=== PATIENT | male | born 1955 | race Caucasian/White ===

== ENCOUNTER 2017-11-28 18:23 | Emergency (ER) | payer MEDICARE, MEDICAID ==
[~2017-11-28] VITALS: Ht 170.2 cm; Wt 100.0 kg
[~2017-11-28 18:23] MED LIST: ALBU18HF2 INH; CYCL-394 PO; DULA1.5P; FERR325T28 PO; GLIP-127 PO; HYDR-3686 PO; LANTUS SQ; METH-603 PO; PER10325T PO; PREG100C PO; SIMV20TA5 PO
[2017-11-28] MEDS ORDERED: normal saline 1000ML IV soln IVB ONE (18:45)
[2017-11-28] MEDS ORDERED: ondansetron/PF 4mg/2ml inj IV ONE (18:45)
[2017-11-28 19:32] LABS: BASOPHILS % (AUTO) 0.1 % (0-1); EOSINOPHILS # (AUTO) 0.2 X10'3 (0-0.9); EOSINOPHILS % (AUTO) 1.3 % (0-6); HEMATOCRIT 51.8 % (42.0-52.0); HEMOGLOBIN 17.3 g/dl (14.0-17.9); LYMPHOCYTES # (AUTO) 3.1 X10'3 (1.1-4.8); MEAN CORPUSCULAR HEMOGLOBIN 27.6 PG (27.0-31.0); MEAN CORPUSCULAR HGB CONC 33.4 % (33.0-36.5); MEAN CORPUSCULAR VOLUME 82.5 FL (78-98); MEAN PLATELET VOLUME 7.5 FL (7.4-10.4); MONOCYTES # (AUTO) 0.8 X10'3 (0-0.9); NEUTROPHILS # (AUTO) 8.9 X10'3 (1.8-7.7); NEUTROPHILS % (AUTO) 68.6 % (42-75); PLATELET COUNT 288 X10'3 (140-440); RED BLOOD COUNT 6.27 X10'6 (4.70-6.10); RED CELL DISTRIBUTION WIDTH 14.1 % (11.5-14.5)
[2017-11-28 19:40] LABS: INR 1.1 INR; PROTHROMBIN TIME 11.5 SECONDS (9.0-12.0)
[2017-11-28 19:53] LABS: ALANINE AMINOTRANSFERASE 71 U/L (12-78); ALBUMIN 3.8 G/DL (3.4-5.0); ALBUMIN/GLOBULIN RATIO 0.8 (1.1-1.5); ALKALINE PHOSPHATASE 130 IU/L (46-116); ANION GAP 8 (8-16); ASPARTATE AMINO TRANSFERASE 41 U/L (10-37); BILIRUBIN,TOTAL 0.9 MG/DL (0.1-1.0); BLOOD UREA NITROGEN 18 MG/DL (7-18); BUN/CREATININE RATIO 18.4 (5.4-32.0); CALCIUM 9.2 MG/DL (8.5-10.1); CHLORIDE 97 MMOL/L (99-107); CREATININE 0.98 MG/DL (0.60-1.10); GLUCOSE 200 MG/DL (70-104); MAGNESIUM 1.9 MG/DL (1.5-2.4); POTASSIUM 4.1 MMOL/L (3.5-5.1); SODIUM 132 MMOL/L (135-145); TOTAL PROTEIN 8.4 G/DL (6.4-8.2); eGFR 77 ML/MIN
[2017-11-28] MEDS ORDERED: ONDA4TAB6 PO (20:10)
[2017-11-28 20:16] LABS: CLARITY,URINE Clear (Clear); COLOR,URINE Yellow (Yellow); GLUCOSE, URINE Negative (Neg); KETONES,URINE Negative (Neg); LEUKOCYTE ESTERASE ,URINE Negative (Neg); NITRITES, URINE Negative (Neg); OCCULT BLOOD,URINE Negative (Neg); PROTEIN,URINE Negative (Neg)
[2017-11-28 20:17] LABS: UA COLLECTION TYPE STRAIGHT CATH
[2017-11-28 20:46] VITALS: BP 158/99
== END 2017-11-28 21:12 | disposition home or self-care (01) ==
LOC: ER 18:24
DX: R53.1 Weakness (principal); E11.65 Type 2 diabetes mellitus with hyperglycemia; E78.00 Pure hypercholesterolemia, unspecified; I10 Essential (primary) hypertension; J44.9 Chronic obstructive pulmonary disease, unspecified; K21.9 Gastro-esophageal reflux disease without esophagitis; G89.29 Other chronic pain; E11.42 Type 2 diabetes mellitus with diabetic polyneuropathy; F41.9 Anxiety disorder, unspecified; F32.9 Major depressive disorder, single episode, unspecified; Z90.89 Acquired absence of other organs; Z79.4 Long term (current) use of insulin; Z88.8 Allergy status to other drugs, medicaments and biological substances; Z88.6 Allergy status to analgesic agent
CPT/HCPCS: 36415; 71045; 80053; 81003; 83735; 83880; 84484; 85025; 85610; 93005; 96361; 96374; 99285; A4353; J2405; J7030

== ENCOUNTER 2018-07-12 02:42 | Outpatient (CLI) | payer MEDICARE, MEDICAID ==
[~2018-07-12 02:42] MED LIST changes: +ONDA4TAB6 PO
== END 2018-07-12 23:59 | disposition home or self-care (01) ==
LOC: DIABETIC 02:42
PROVIDERS: ATTEND Student in an Organized Health Care Education/Training Program
DX: E11.65 Type 2 diabetes mellitus with hyperglycemia (principal); E11.40 Type 2 diabetes mellitus with diabetic neuropathy, unspecified; E78.5 Hyperlipidemia, unspecified; I10 Essential (primary) hypertension; J44.9 Chronic obstructive pulmonary disease, unspecified; E11.21 Type 2 diabetes mellitus with diabetic nephropathy; E11.43 Type 2 diabetes mellitus with diabetic autonomic (poly)neuropathy; E11.319 Type 2 diabetes mellitus with unspecified diabetic retinopathy without macular edema; K31.84 Gastroparesis; I67.9 Cerebrovascular disease, unspecified; Z79.4 Long term (current) use of insulin; Z87.891 Personal history of nicotine dependence
CPT/HCPCS: G0108

== ENCOUNTER 2018-10-11 02:21 | Outpatient (CLI) | payer MEDICARE, MEDICAID | END 2018-10-11 23:59 | disposition home or self-care (01) | LOC: DIABETIC 02:21 | PROVIDERS: ATTEND Student in an Organized Health Care Education/Training Program | DX: E11.65 Type 2 diabetes mellitus with hyperglycemia (principal); F17.200 Nicotine dependence, unspecified, uncomplicated; J44.9 Chronic obstructive pulmonary disease, unspecified; I10 Essential (primary) hypertension; E11.40 Type 2 diabetes mellitus with diabetic neuropathy, unspecified; E11.319 Type 2 diabetes mellitus with unspecified diabetic retinopathy without macular edema; E11.21 Type 2 diabetes mellitus with diabetic nephropathy; E11.43 Type 2 diabetes mellitus with diabetic autonomic (poly)neuropathy; K31.84 Gastroparesis; E78.5 Hyperlipidemia, unspecified; I67.9 Cerebrovascular disease, unspecified; Z79.4 Long term (current) use of insulin; Z79.899 Other long term (current) drug therapy | CPT/HCPCS: G0108 ==

== ENCOUNTER 2018-10-18 12:33 | Emergency (ER) | payer MEDICARE, MEDICAID ==
[~2018-10-18] VITALS: Ht 170.2 cm; Wt 93.2 kg
[2018-10-18 12:39] VITALS: BP 214/112
[2018-10-18] MEDS ORDERED: HYDROmorphone 1 mg/ml syringe IM ONE (12:50)
[2018-10-18] MEDS ORDERED: ketorolac trometh inj. 60 MG/2 ML VIAL IM ONE (12:50)
[2018-10-18 14:11] LABS: URINE AMPHETAMINE SCREEN NEGATIVE (Neg); URINE BARBITUATE SCREEN NEGATIVE (Neg); URINE BENZODIAZEPINES SCREEN NEGATIVE (Neg); URINE CANNABINOID SCREEN POSITIVE (Neg); URINE COCAINE SCREEN NEGATIVE (Neg); URINE METHADONE SCREEN NEGATIVE (Neg); URINE OPIATE SCREEN NEGATIVE (Neg); URINE PHENCYCLIDINE SCREEN NEGATIVE (Neg)
== END 2018-10-18 14:03 | disposition home or self-care (01) ==
LOC: ER 12:33
DX: G89.29 Other chronic pain (principal); M25.512 Pain in left shoulder; J44.9 Chronic obstructive pulmonary disease, unspecified; I10 Essential (primary) hypertension; E78.00 Pure hypercholesterolemia, unspecified; E11.42 Type 2 diabetes mellitus with diabetic polyneuropathy; K21.9 Gastro-esophageal reflux disease without esophagitis; Z90.89 Acquired absence of other organs; Z98.890 Other specified postprocedural states; Z88.6 Allergy status to analgesic agent; Z88.8 Allergy status to other drugs, medicaments and biological substances; Z79.4 Long term (current) use of insulin; Z79.899 Other long term (current) drug therapy
CPT/HCPCS: 36415; 73030; 80305; 80320; 96372; 99284; J1885

== ENCOUNTER 2018-10-30 10:53 | Outpatient (CLI) | payer MEDICARE, MEDICAID ==
[2018-10-30] MEDS ORDERED: INSU100I31 SQ (11:28)
[2018-10-30] MEDS ORDERED: HYDR-3686 PO (11:29)
[2018-10-30 12:29] LABS: BASOPHILS % (AUTO) 0.3 % (0-1); EOSINOPHILS # (AUTO) 0.2 X10'3 (0-0.9); EOSINOPHILS % (AUTO) 2.1 % (0-6); LYMPHOCYTES # (AUTO) 2.8 X10'3 (1.1-4.8); LYMPHOCYTES % (AUTO) 24.9 % (21-51); MEAN CORPUSCULAR HEMOGLOBIN 29.1 PG (27.0-31.0); MEAN CORPUSCULAR HGB CONC 33.5 % (33.0-36.5); MEAN CORPUSCULAR VOLUME 86.9 FL (78-98); MEAN PLATELET VOLUME 7.6 FL (7.4-10.4); MONOCYTES # (AUTO) 0.8 X10'3 (0-0.9); NEUTROPHILS # (AUTO) 7.5 X10'3 (1.8-7.7); NEUTROPHILS % (AUTO) 65.7 % (42-75); PRE OP HEMATOCRIT 50.3 % (42.0-52.0); PRE OP HEMOGLOBIN 16.9 g/dL (14.0-17.9); PRE OP PLATELET COUNT 316 X10'3 (140-440); RED BLOOD COUNT 5.79 X10'6 (4.70-6.10); RED CELL DISTRIBUTION WIDTH 14.1 % (11.5-14.5)
[2018-10-30 12:53] LABS: ALBUMIN 3.8 G/DL (3.4-5.0); ALBUMIN/GLOBULIN RATIO 0.9 (1.1-1.5); ALKALINE PHOSPHATASE 121 IU/L (46-116); BLOOD UREA NITROGEN 16 MG/DL (7-18); BUN/CREATININE RATIO 16.7 (5.4-32.0); CHLORIDE 98 MMOL/L (99-107); CREATININE 0.96 MG/DL (0.60-1.10); PRE OP ANION GAP 14 (8-16); PRE OP AST 44 U/L (10-37); PRE OP BILIRUB, TOTAL 0.5 MG/DL (0.0-1.0); PRE OP POTASSIUM 4.2 MMOL/L (3.4-5.1); PRE OP SODIUM 134 MMOL/L (135-145); TOTAL CARBON DIOXIDE 22.2 MMOL/L (24-32); TOTAL PROTEIN 8.1 G/DL (6.4-8.2); eGFR 79 ML/MIN
[2018-10-30 12:59] LABS: PRE OP GLUCOSE 296 MG/DL (70-104)
[2018-10-30 13:00] LABS: PRE OP ALT 84 U/L (30-65)
[2018-10-30 13:02] LABS: PRE OP PROTIME 10.6 SECONDS (9.0-12.0)
== END 2018-10-30 23:59 | disposition home or self-care (01) ==
LOC: PRE-OP 10:53 → EDSTATUS 11-03 08:30
PROVIDERS: ATTEND Orthopaedic Surgery
DX: Z01.818 Encounter for other preprocedural examination (principal); M19.012 Primary osteoarthritis, left shoulder; J44.9 Chronic obstructive pulmonary disease, unspecified; F17.210 Nicotine dependence, cigarettes, uncomplicated; M25.512 Pain in left shoulder
CPT/HCPCS: 36415; 71046; 80053; 83036; 85025; 85610; 85730; 87070

== ENCOUNTER 2019-01-03 11:07 | Inpatient (IN) | payer MEDICARE, MEDICAID | END 2019-01-04 13:27 | disposition home or self-care (01) | LOC: ER 11:07 → ED HOLD 15:23 → ORTHO 4S 17:15 | DX: E11.42 Type 2 diabetes mellitus with diabetic polyneuropathy (principal); J44.9 Chronic obstructive pulmonary disease, unspecified; F32.9 Major depressive disorder, single episode, unspecified ==

== ENCOUNTER 2019-01-30 12:06 | Emergency (ER) | payer MEDICARE, MEDICAID ==
[~2019-01-30] VITALS: Ht 170.2 cm; Wt 90.9 kg
[~2019-01-30 12:06] MED LIST changes: -ALBU18HF2 INH; -CYCL-394 PO; +DIPH28.33 TOP; -DULA1.5P; +DULA1.5P SQ; -FERR325T28 PO; -GLIP-127 PO; -HYDR-3686 PO; +HYDR-4353 PO; +INSU100I31 SQ; -LANTUS SQ; +METF-950 PO; -METH-603 PO; -ONDA4TAB6 PO; -PER10325T PO; -PREG100C PO
[2019-01-30] MEDS ORDERED: traMADol 50MG tablet PO ONE (13:45)
[2019-01-30 14:10] VITALS: BP 121/69
== END 2019-01-30 15:22 | disposition home or self-care (01) ==
LOC: ER 12:07
DX: R05 Cough (principal); E78.00 Pure hypercholesterolemia, unspecified; I10 Essential (primary) hypertension; J44.9 Chronic obstructive pulmonary disease, unspecified; K21.9 Gastro-esophageal reflux disease without esophagitis; G89.29 Other chronic pain; E11.42 Type 2 diabetes mellitus with diabetic polyneuropathy; Z90.89 Acquired absence of other organs; Z98.890 Other specified postprocedural states; Z88.8 Allergy status to other drugs, medicaments and biological substances; Z88.6 Allergy status to analgesic agent; Z79.4 Long term (current) use of insulin; Z91.011 Allergy to milk products; Z87.01 Personal history of pneumonia (recurrent)
CPT/HCPCS: 71045; 93005; 99283

== ENCOUNTER 2019-02-28 00:50 | Outpatient (CLI) | payer MEDICARE, MEDICAID | END 2019-02-28 23:59 | disposition home or self-care (01) | LOC: DIABETIC 00:50 | PROVIDERS: ATTEND Student in an Organized Health Care Education/Training Program | DX: E11.65 Type 2 diabetes mellitus with hyperglycemia (principal); E11.21 Type 2 diabetes mellitus with diabetic nephropathy; E11.40 Type 2 diabetes mellitus with diabetic neuropathy, unspecified; E11.319 Type 2 diabetes mellitus with unspecified diabetic retinopathy without macular edema; E11.43 Type 2 diabetes mellitus with diabetic autonomic (poly)neuropathy; K31.84 Gastroparesis; E78.5 Hyperlipidemia, unspecified; I10 Essential (primary) hypertension; I67.9 Cerebrovascular disease, unspecified; J44.9 Chronic obstructive pulmonary disease, unspecified; Z87.891 Personal history of nicotine dependence | CPT/HCPCS: G0108 ==

== ENCOUNTER 2019-06-26 08:00 | Outpatient (CLI) | payer MEDICARE, MEDICAID | END 2019-06-26 23:59 | disposition home or self-care (01) | LOC: DIABETIC 08:00 | PROVIDERS: ATTEND Student in an Organized Health Care Education/Training Program | DX: E11.9 Type 2 diabetes mellitus without complications (principal); Z71.3 Dietary counseling and surveillance | CPT/HCPCS: G0108 ==

== ENCOUNTER 2019-11-15 01:02 | Outpatient (CLI) | payer MEDICARE, MEDICAID ==
[~2019-11-15 01:02] MED LIST changes: +SIMV-42 PO; -SIMV20TA5 PO
== END 2019-11-15 23:59 | disposition home or self-care (01) ==
LOC: DIABETIC 01:02
PROVIDERS: ATTEND Student in an Organized Health Care Education/Training Program
DX: E11.65 Type 2 diabetes mellitus with hyperglycemia (principal)
CPT/HCPCS: G0108

== ENCOUNTER 2020-11-13 13:00 | Emergency (ER) | payer MEDICARE, MEDICAID ==
[~2020-11-13] VITALS: Ht 170.2 cm; Wt 97.2 kg
[~2020-11-13 13:00] MED LIST changes: +ADALIMUMAB 40 MG SQ SCH
[2020-11-13 13:15] VITALS: BP 171/135
--- NOTE | 2020-11-13 13:36 | NUR ---
PATIENT STATES THAT HE IS HAVING FAMILY PROBLEMS AND HAS BEEN LIVING WITH A FRIEND FOR THE PAST WEEK. STATES HE FEELS LIKE HE NEEDS TO TALK TO SOMEONE, OR HE WILL POSSIBLY "HURT HIMSELF".
[2020-11-13 15:20] LABS: URINE AMPHETAMINE SCREEN NEGATIVE (Neg); URINE BARBITUATE SCREEN NEGATIVE (Neg); URINE BENZODIAZEPINES SCREEN NEGATIVE (Neg); URINE CANNABINOID SCREEN POSITIVE (Neg); URINE COCAINE SCREEN NEGATIVE (Neg); URINE METHADONE SCREEN NEGATIVE (Neg); URINE OPIATE SCREEN POSITIVE (Neg); URINE PHENCYCLIDINE SCREEN NEGATIVE (Neg)
[2020-11-13 15:23] LABS: ALANINE AMINOTRANSFERASE 70 U/L (12-78); ALBUMIN 4.2 G/DL (3.4-5.0); ALBUMIN/GLOBULIN RATIO 1.1 (1.1-1.5); ALKALINE PHOSPHATASE 77 IU/L (46-116); ANION GAP 11 (8-16); ASPARTATE AMINO TRANSFERASE 51 U/L (10-37); BILIRUBIN,TOTAL 0.8 MG/DL (0.1-1.0); BLOOD UREA NITROGEN 22 MG/DL (7-18); BUN/CREATININE RATIO 19.5 (5.4-32.0); CALCIUM 8.4 MG/DL (8.5-10.1); CHLORIDE 99 MMOL/L (99-107); CREATININE 1.13 MG/DL (0.60-1.10); GLUCOSE 112 MG/DL (70-104); POTASSIUM 4.6 MMOL/L (3.5-5.1); SODIUM 135 MMOL/L (135-145); TOTAL CARBON DIOXIDE 24.9 MMOL/L (24-32); TOTAL PROTEIN 7.9 G/DL (6.4-8.2); eGFR 65 ML/MIN
[2020-11-13 15:26] LABS: BASOPHILS # (AUTO) 0.1 X10'3 (0-0.2); BASOPHILS % (AUTO) 0.7 % (0-1); EOSINOPHILS # (AUTO) 0.2 X10'3 (0-0.9); HEMATOCRIT 43.9 % (42.0-52.0); LYMPHOCYTES # (AUTO) 4.1 X10'3 (1.1-4.8); LYMPHOCYTES % (AUTO) 36.9 % (21-51); MEAN CORPUSCULAR HEMOGLOBIN 29.7 PG (27.0-31.0); MEAN CORPUSCULAR HGB CONC 34.2 g/dL (33.0-36.5); MEAN CORPUSCULAR VOLUME 86.8 FL (78-98); MEAN PLATELET VOLUME 8.2 FL (7.4-10.4); MONOCYTES # (AUTO) 0.9 X10'3 (0-0.9); MONOCYTES % (AUTO) 8.3 % (2-12); NEUTROPHILS # (AUTO) 5.8 X10'3 (1.8-7.7); NEUTROPHILS % (AUTO) 52.1 % (42-75); PLATELET COUNT 274 X10'3 (140-440); RED BLOOD COUNT 5.06 X10'6 (4.70-6.10); RED CELL DISTRIBUTION WIDTH 12.5 % (11.5-14.5)
[2020-11-13 15:32] LABS: ETHANOL < 0.010 GM/DL (0.0-0.010)
[2020-11-13 15:33] LABS: ACETAMINOPHEN < 2.0 UG/ML (10-30)
[2020-11-13] MEDS ORDERED: HYDR-3686 PO (16:09)
[2020-11-13] MEDS ORDERED: ADAL40PE5 SQ (16:09)
[2020-11-13] MEDS ORDERED: MIRT15TA8 PO (16:09)
[2020-11-13] MEDS ORDERED: hydrOXYzine 25 MG tablet PO PRN (17:00)
[2020-11-13] MEDS ORDERED: metFORMIN 500mg tablet PO SCH (17:30)
--- NOTE | 2020-11-13 20:00 | NUR ---
[facility] has been with the patient to evaluate. He is loud and labile.
[2020-11-13] MEDS ORDERED: SIMVASTATIN 20 MG PO SCH (21:00)
[2020-11-13] MEDS ORDERED: mirtazapine 15mg tablet PO SCH (21:00)
[2020-11-14] MEDS ORDERED: insulin glargine (Lantus) pen - multi-dose SQ SCH (08:00)
[2020-11-20] MEDS ORDERED: (Dulaglutide (Trulicity) 0.5 ML) SQ SCH (17:00)
== END 2020-11-13 20:54 ==
LOC: ER 13:01
DX: R45.851 Suicidal ideations (principal); E11.42 Type 2 diabetes mellitus with diabetic polyneuropathy; E78.00 Pure hypercholesterolemia, unspecified; I10 Essential (primary) hypertension; J44.9 Chronic obstructive pulmonary disease, unspecified; K21.9 Gastro-esophageal reflux disease without esophagitis; G89.29 Other chronic pain; F31.9 Bipolar disorder, unspecified; F41.9 Anxiety disorder, unspecified; Z86.73 Personal history of transient ischemic attack (TIA), and cerebral infarction without residual deficits; Z90.89 Acquired absence of other organs; Z98.890 Other specified postprocedural states; Z88.8 Allergy status to other drugs, medicaments and biological substances; Z88.6 Allergy status to analgesic agent; Z79.4 Long term (current) use of insulin; Z79.899 Other long term (current) drug therapy
CPT/HCPCS: 36415; 80053; 80305; 80320; 80329; 82948; 84443; 85025; 99285; Q0177; J1815

== ENCOUNTER 2023-11-21 15:23 | Inpatient (IN) | payer MEDICARE, MEDICAID ==
[~2023-11-21] VITALS: Ht 170.2 cm; Wt 84.6 kg
[~2023-11-21 15:23] MED LIST changes: +ACET-3447 PO; -ADALIMUMAB 40 MG SQ SCH; +ALBU18HF2 PO; +CARV6.253 PO; +CLOP75TA34 PO; -DIPH28.33 TOP; +HYDR-3686 PO; -HYDR-4353 PO; +IPRA3AMP9 NEB; +LISI10TA27 PO; +LOSA50TA64 PO; +META-25 PO; +METF-1203 PO; -METF-950 PO; +MULT-227 PO
[2023-11-21] MEDS ORDERED: ALBU18HF2 INH (17:05)
[2023-11-21] MEDS ORDERED: ROSU40TA PO (17:05)
[2023-11-21 17:12] LABS: BILIRUBIN,URINE NEGATIVE (Neg); CLARITY,URINE CLEAR (Clear); COLOR,URINE YELLOW (Yellow); GLUCOSE, URINE 500 mg/dl (Neg); KETONES,URINE TRACE mg/dl (Neg); LEUKOCYTE ESTERASE ,URINE NEGATIVE (Neg); NITRITES, URINE NEGATIVE (Neg); OCCULT BLOOD,URINE NEGATIVE (Neg); PH,URINE 5.5 (4.8-8.0); PROTEIN,URINE 100 mg/dl (Neg); UROBILINOGEN,URINE 0.2 E.U/dL (0.2-1.0)
[2023-11-21 17:18] LABS: MUCUS STRANDS FEW /LPF (Neg); SQUAMOUS EPITHELIAL CELL,UR FEW /LPF (FEW); UA COLLECTION TYPE CLN CATCH MIDSTREAM; URINE AMPHETAMINE SCREEN NEGATIVE (Neg); URINE BARBITUATE SCREEN NEGATIVE (Neg); URINE BENZODIAZEPINES SCREEN NEGATIVE (Neg); URINE CANNABINOID SCREEN POSITIVE (Neg); URINE COCAINE SCREEN NEGATIVE (Neg); URINE METHADONE SCREEN NEGATIVE (Neg); URINE OPIATE SCREEN NEGATIVE (Neg); URINE PHENCYCLIDINE SCREEN NEGATIVE (Neg)
[2023-11-21 17:19] LABS: BACTERIA,URINE FEW /HPF (Neg); RBC,URINE 0-2 /HPF (0-2); WBC,URINE 0-4 /HPF (0-4)
[2023-11-21] MEDS: metFORMIN 500mg tablet PO SCH (18:31)
[2023-11-21 18:56] LABS: BASOPHILS # (AUTO) 0.1 X10'3 (0-0.2); BASOPHILS % (AUTO) 0.5 % (0-1); EOSINOPHILS # (AUTO) 0.1 X10'3 (0-0.9); EOSINOPHILS % (AUTO) 1.1 % (0-6); HEMATOCRIT 40.4 % (42.0-52.0); HEMOGLOBIN 13.5 g/dl (14.0-17.9); LYMPHOCYTES % (AUTO) 19.5 % (21-51); MEAN CORPUSCULAR HEMOGLOBIN 28.2 PG (27.0-31.0); MEAN CORPUSCULAR HGB CONC 33.4 g/dL (33.0-36.5); MEAN CORPUSCULAR VOLUME 84.3 FL (78-98); MEAN PLATELET VOLUME 7.8 FL (7.4-10.4); MONOCYTES # (AUTO) 0.9 X10'3 (0-0.9); MONOCYTES % (AUTO) 8.6 % (2-12); NEUTROPHILS # (AUTO) 7.3 X10'3 (1.8-7.7); NEUTROPHILS % (AUTO) 70.3 % (42-75); PLATELET COUNT 305 X10'3 (140-440); RED BLOOD COUNT 4.79 X10'6 (4.70-6.10); RED CELL DISTRIBUTION WIDTH 12.7 % (11.5-14.5); WHITE BLOOD COUNT 10.4 X10'3 (4.5-11.0)
[2023-11-21 19:06] LABS: ALANINE AMINOTRANSFERASE 31 U/L (12-78); ALBUMIN 3.5 G/DL (3.4-5.0); ALKALINE PHOSPHATASE 84 IU/L (46-116); ANION GAP 11 (8-16); ASPARTATE AMINO TRANSFERASE 25 U/L (10-37); BILIRUBIN,TOTAL 0.3 MG/DL (0.1-1.0); BLOOD UREA NITROGEN 16 MG/DL (7-18); BUN/CREATININE RATIO 16.3 (10.0-20.0); CALCIUM 8.8 MG/DL (8.5-10.1); CHLORIDE 98 MMOL/L (99-107); CREATININE 0.98 MG/DL (0.60-1.10); GLUCOSE 233 MG/DL (70-104); POTASSIUM 4.9 MMOL/L (3.5-5.1); SODIUM 133 MMOL/L (135-145); TOTAL CARBON DIOXIDE 24.5 MMOL/L (24-32); TOTAL PROTEIN 7.1 G/DL (6.4-8.2); eCRCL 67 ML/MIN; eGFR 76 ML/MIN
[2023-11-21 19:15] LABS: ETHANOL < 10 MG/DL (<10); THYROID STIMULATING HORMONE 1.72 ulU/ml (0.34-4.50)
[2023-11-21] MEDS: hydrOXYzine 25 MG tablet PO SCH (20:24)
[2023-11-21] MEDS: atorvastatin 20mg tablet PO SCH (20:24)
[2023-11-21] MEDS ORDERED: quetiapine 100mg tablet PO SCH (22:05)
[2023-11-21] MEDS: QUEtiapine 25mg tablet PO ONE (22:12)
[2023-11-21] MEDS: QUEtiapine 25mg tablet PO PRN (22:57)
[2023-11-22] MEDS: acetaminophen 325mg tablet PO PRN ×2 (05:19→20:11)
[2023-11-22] MEDS: cyclobenzaprine 10mg tablet PO PRN (05:19)
[2023-11-22] MEDS: lisinopril 10 MG tablet PO SCH (08:25)
[2023-11-22] MEDS: insulin glargine (Lantus) pen - multi-dose SQ ONE (10:20)
[2023-11-22] MEDS: QUEtiapine 25mg tablet PO ONE (11:43)
[2023-11-22] MEDS ORDERED: mag hydrox/Alum hydrox/simeth 30ml oral suspension PO PRN (16:10)
[2023-11-22] MEDS ORDERED: loperamide 2mg capsule PO PRN (16:10)
[2023-11-22 17:26] VITALS: RESP 16; O2SAT 96
[2023-11-22 19:51] VITALS: RESP 18; O2SAT 96
[2023-11-22 19:53] VITALS: BP 142/75; PULSE 110; RESP 18; TEMP 98; O2SAT 96
[2023-11-22] MEDS ORDERED: glucagon, human recombinant 1mg kit SUBCUT PRN (21:00)
[2023-11-22] MEDS ORDERED: dextrose 50%-water 50ml dispensing syringe IV PRN ×2 (21:00)
[2023-11-22] MEDS ORDERED: DEXTROSE 15 GM of carb/4 tabs (each vial/BOTTLE has 4 tablets) PO PRN (21:00)
[2023-11-22] MEDS: insulin glargine (Lantus) pen - multi-dose SQ SCH (21:41)
[2023-11-22] MEDS: traZODone 50mg tablet PO ONE (22:24)
[2023-11-23 07:00] VITALS: RESP 16; O2SAT 97
[2023-11-23 08:00] VITALS: BP 117/78; PULSE 100; RESP 16; TEMP 97.8; O2SAT 100
[2023-11-23] MEDS: insulin Lispro (HumaLOG) vial - multi-dose SQ SCH (08:58)
[2023-11-23 09:57] LABS: HEMOGLOBIN A1C 7.6 % (4.5-6.2)
[2023-11-23 10:01] LABS: CHOL/HDL RATIO 1.9 (0.00-4.99); CHOLESTEROL 91 MG/DL (0-200); HDL CHOLESTEROL 48 MG/DL (35-60); LDL CHOLESTEROL 24 MG/DL (50-100); TRIGLYCERIDES 191 MG/DL (20-135)
[2023-11-23 19:00] VITALS: RESP 18; O2SAT 97
[2023-11-23 19:22] VITALS: BP 141/74; PULSE 88; RESP 18; TEMP 97; O2SAT 97
[2023-11-23] MEDS: ROSUVASTATIN CALCIUM 5 MG TABLET PO SCH (21:21)
[2023-11-24 07:30] VITALS: BP 123/81; PULSE 106; RESP 17; TEMP 97.7; O2SAT 94
[2023-11-24 19:50] VITALS: BP 143/77; PULSE 103; RESP 18; TEMP 98.7; O2SAT 97
[2023-11-24] MEDS ORDERED: quetiapine 100mg tablet PO PRN (21:55)
[2023-11-24] MEDS: traZODone 50mg tablet PO SCH (22:37)
[2023-11-24] MEDS: quetiapine 100mg tablet PO SCH (22:37)
[2023-11-25] MEDS: QUEtiapine 25mg tablet PO PRN (03:23)
[2023-11-25 07:06] VITALS: RESP 17; O2SAT 94
[2023-11-25 08:00] VITALS: BP 102/75; PULSE 110; RESP 16; TEMP 97.4; O2SAT 98
[2023-11-25 10:24] LABS: HBSAG SCREEN Negative (Negative); HEP B CORE AB, IGM Negative (Negative); HEP B CORE AB, TOT Negative (Negative)
[2023-11-25 20:00] VITALS: BP 103/74; PULSE 95; RESP 20; TEMP 97.7; O2SAT 96
[2023-11-25] MEDS ORDERED: quetiapine 100mg tablet PO SCH (21:00)
[2023-11-25] MEDS ORDERED: divalproex sodium 500mg tablet.DR PO SCH (21:00)
[2023-11-25] MEDS ORDERED: traZODone 50mg tablet PO SCH (21:00)
[2023-11-25] MEDS: divalproex sod 250mg ER (24-hour) tablet PO SCH (21:43)
[2023-11-26 08:00] VITALS: BP 115/78; PULSE 103; RESP 16; TEMP 97.3; O2SAT 97
[2023-11-26] MEDS: DULAGLUTIDE 1.5 MG/0.5 ML SQ SCH (10:00)
[2023-11-26 19:00] VITALS: BP 114/76; PULSE 91; RESP 17; TEMP 98.5; O2SAT 95
[2023-11-26 19:41] VITALS: RESP 17; O2SAT 95
[2023-11-26] MEDS: divalproex sod 250mg ER (24-hour) tablet PO SCH (20:48)
[2023-11-26] MEDS: traZODone 50mg tablet PO ONE (22:18)
[2023-11-27 07:00] VITALS: BP 147/81; PULSE 104; RESP 18; TEMP 97.4; O2SAT 96
[2023-11-27] MEDS ORDERED: acetaminophen 325mg tablet PO PRN (12:00)
[2023-11-27] MEDS: albuterol 2.5 MG/3 ML nebule NEB PRN (14:18)
[2023-11-27 14:20] VITALS: PULSE 110; RESP 18; O2SAT 99
[2023-11-27 14:27] VITALS: PULSE 111; RESP 20
[2023-11-27 19:00] VITALS: BP 126/67; PULSE 104; RESP 16; TEMP 97.7; O2SAT 97
[2023-11-28 02:33] VITALS: BP 126/67; PULSE 104; RESP 16; TEMP 97.7; O2SAT 97
[2023-11-28 07:00] VITALS: BP 158/94; PULSE 65; RESP 18; TEMP 98.6; O2SAT 99
[2023-11-28] MEDS: aspirin 81mg, enteric-coated 1 TAB TABLET.DR PO SCH (07:45)
[2023-11-28 09:09] VITALS: PULSE 98; RESP 18; O2SAT 98
[2023-11-28 19:00] VITALS: RESP 16; O2SAT 97
[2023-11-28 19:24] VITALS: BP 108/79; PULSE 103; RESP 16; TEMP 98.1; O2SAT 97
[2023-11-28 20:25] VITALS: PULSE 104; RESP 18; O2SAT 96
[2023-11-29 07:30] VITALS: BP 121/73; PULSE 96; RESP 18; TEMP 98.1; O2SAT 94
[2023-11-29 14:46] VITALS: PULSE 96; RESP 18; O2SAT 98
[2023-11-29 19:32] VITALS: BP 148/83; PULSE 100; RESP 18; TEMP 98; O2SAT 99
[2023-11-29 20:39] VITALS: PULSE 101; RESP 16; O2SAT 98
[2023-11-30 07:00] VITALS: RESP 16; O2SAT 96
[2023-11-30] MEDS: ESCITALOPRAM 10 mg tablet 10 MG TABLET PO SCH (07:31)
[2023-11-30 08:00] VITALS: BP 112/74; PULSE 107; RESP 16; TEMP 97.9; O2SAT 96
[2023-11-30 19:00] VITALS: RESP 20; O2SAT 100
[2023-11-30 20:00] VITALS: BP 139/81; PULSE 62; RESP 20; TEMP 97.6; O2SAT 100
[2023-12-01 07:30] VITALS: BP 133/84; PULSE 99; RESP 16; TEMP 98.1; O2SAT 97
[2023-12-01 19:00] VITALS: BP 115/71; PULSE 65; RESP 16; TEMP 97.5; O2SAT 97
[2023-12-02 07:15] VITALS: RESP 16; O2SAT 97
[2023-12-02 08:00] VITALS: BP 150/90; PULSE 67; RESP 14; TEMP 97.8; O2SAT 99
[2023-12-02 19:00] VITALS: BP 107/84; PULSE 104; RESP 18; TEMP 98.3; O2SAT 96
[2023-12-03 07:41] VITALS: RESP 16; O2SAT 97
[2023-12-03 08:00] VITALS: BP 140/95; PULSE 92; RESP 16; TEMP 97.7; O2SAT 99
[2023-12-03] MEDS: acetaminophen 325mg tablet PO PRN (15:14)
[2023-12-03 19:00] VITALS: RESP 19; O2SAT 97
[2023-12-03 20:00] VITALS: BP 128/98; PULSE 101; RESP 19; TEMP 97.9; O2SAT 97
[2023-12-04 07:00] VITALS: BP 122/68; PULSE 96; RESP 20; TEMP 97.8; O2SAT 96
[2023-12-04 11:24] VITALS: PULSE 90; RESP 16; O2SAT 98
[2023-12-04 19:00] VITALS: BP 139/79; PULSE 101; RESP 18; TEMP 97.5; O2SAT 99
[2023-12-05 07:00] VITALS: RESP 18; O2SAT 99
[2023-12-05 08:00] VITALS: BP 135/81; PULSE 87; RESP 18; TEMP 97.4; O2SAT 99
[2023-12-05 17:08] VITALS: PULSE 96; RESP 17; O2SAT 98
[2023-12-05 19:30] VITALS: RESP 18; O2SAT 98
[2023-12-05 19:46] VITALS: BP 189/83; PULSE 104; RESP 18; TEMP 97.9; O2SAT 98
[2023-12-05] MEDS: magnesium hydroxide 30ml (MOM) UD suspension PO PRN (20:40)
[2023-12-06 08:07] VITALS: BP 120/58; PULSE 96; RESP 16; TEMP 98; O2SAT 96
[2023-12-06] MEDS: metFORMIN 500mg tablet PO SCH (08:51)
[2023-12-06 19:51] VITALS: RESP 18; O2SAT 98
[2023-12-06 19:53] VITALS: BP 140/85; PULSE 114; RESP 18; TEMP 98.6; O2SAT 98
[2023-12-06 20:46] VITALS: BP 140/85; PULSE 114; RESP 18; TEMP 97; O2SAT 98
[2023-12-07 07:00] VITALS: RESP 16; O2SAT 98
[2023-12-07 09:49] VITALS: BP 134/80; PULSE 102; RESP 12; TEMP 98.4; O2SAT 98
[2023-12-07 10:45] VITALS: PULSE 100; RESP 16
[2023-12-07 17:00] VITALS: PULSE 103; RESP 18; O2SAT 98
[2023-12-07 19:00] VITALS: RESP 17; O2SAT 99
[2023-12-07 20:00] VITALS: BP 140/80; PULSE 70; RESP 17; TEMP 98.7; O2SAT 99
[2023-12-08 07:25] VITALS: BP 118/85; PULSE 102; RESP 16; TEMP 98.4; O2SAT 98
[2023-12-08 10:55] VITALS: PULSE 107; RESP 16; O2SAT 97
[2023-12-08 19:30] VITALS: BP 138/78; PULSE 108; RESP 18; TEMP 97.6; O2SAT 97
[2023-12-08 19:49] VITALS: PULSE 108; RESP 16; O2SAT 96
[2023-12-09 07:00] VITALS: BP 124/64; PULSE 108; RESP 16; TEMP 98.8; O2SAT 95
[2023-12-09 12:45] VITALS: PULSE 108; RESP 16; O2SAT 98
[2023-12-09 19:00] VITALS: RESP 20; O2SAT 96
[2023-12-09 19:45] VITALS: BP 103/68; PULSE 101; RESP 20; TEMP 98.2; O2SAT 96
[2023-12-09 20:23] VITALS: PULSE 103; RESP 16; O2SAT 94
[2023-12-10 07:00] VITALS: RESP 16; O2SAT 98
[2023-12-10 08:00] VITALS: BP 151/86; PULSE 96; RESP 14; TEMP 99.1; O2SAT 97
[2023-12-10 11:49] VITALS: PULSE 101; RESP 16; O2SAT 96
[2023-12-10 19:00] VITALS: RESP 16; O2SAT 97
[2023-12-10 20:00] VITALS: BP 102/85; PULSE 112; RESP 16; TEMP 98.3; O2SAT 97
[2023-12-10 22:56] VITALS: PULSE 103; RESP 16; O2SAT 93
[2023-12-11 07:00] VITALS: BP 143/91; PULSE 101; RESP 14; TEMP 97.9; O2SAT 99
[2023-12-11 19:00] VITALS: RESP 20; O2SAT 97
[2023-12-11 19:01] VITALS: BP 169/83; PULSE 91; RESP 20; TEMP 97.8; O2SAT 97
[2023-12-11] MEDS: DEXTROSE 15 GM of carb/4 tabs (each vial/BOTTLE has 4 tablets) PO PRN (21:26)
[2023-12-12 07:00] VITALS: BP 151/82; PULSE 105; RESP 16; TEMP 97.6; O2SAT 93
[2023-12-12 10:38] VITALS: PULSE 96; RESP 16; O2SAT 96
[2023-12-12 19:00] VITALS: RESP 16; O2SAT 97
[2023-12-12 19:30] VITALS: BP 139/81; PULSE 100; RESP 16; TEMP 98.4; O2SAT 97
[2023-12-12 20:00] VITALS: BP 179/113; PULSE 100; RESP 18; TEMP 98.4; O2SAT 98
[2023-12-12] MEDS: insulin glargine (Lantus) pen - multi-dose SQ SCH (21:37)
[2023-12-13 07:00] VITALS: RESP 20; O2SAT 94
[2023-12-13] MEDS: LIDOcaine 5% patch TP SCH (07:25)
[2023-12-13 08:00] VITALS: BP 145/84; PULSE 110; RESP 20; TEMP 98.3; O2SAT 94
[2023-12-13 19:24] VITALS: RESP 18; O2SAT 97
[2023-12-13 19:29] VITALS: BP 146/83; PULSE 111; RESP 18; TEMP 98.4; O2SAT 97
[2023-12-13 20:25] VITALS: PULSE 105; RESP 18; O2SAT 97
[2023-12-14 07:10] VITALS: RESP 18; O2SAT 95
[2023-12-14 08:00] VITALS: BP 147/82; PULSE 105; RESP 18; TEMP 97.9; O2SAT 95
[2023-12-14 17:30] VITALS: PULSE 102; RESP 19; O2SAT 96
[2023-12-14 19:00] VITALS: BP 109/83; PULSE 99; RESP 18; TEMP 98.5; O2SAT 96
[2023-12-15 08:00] VITALS: BP 133/81; PULSE 105; RESP 18; TEMP 98.4; O2SAT 98
[2023-12-15 10:16] VITALS: PULSE 105; RESP 16; O2SAT 96
[2023-12-15 19:00] VITALS: BP 126/67; PULSE 94; RESP 18; TEMP 98; O2SAT 98
[2023-12-16 08:47] VITALS: BP 143/83; PULSE 102; RESP 12; TEMP 98; O2SAT 97
[2023-12-16 10:23] VITALS: PULSE 98; RESP 16; O2SAT 97
[2023-12-16 19:29] VITALS: BP 127/76; PULSE 91; RESP 18; RESP 20; TEMP 97.6; O2SAT 97
[2023-12-17 07:28] VITALS: BP 128/75; PULSE 103; RESP 16; TEMP 97.9; O2SAT 98
[2023-12-17 10:16] VITALS: PULSE 107; RESP 16; O2SAT 97
[2023-12-17 19:00] VITALS: RESP 16; O2SAT 98
[2023-12-17 19:42] VITALS: BP 106/83; PULSE 92; RESP 16; TEMP 98.7; O2SAT 98
[2023-12-17 20:21] VITALS: PULSE 95; RESP 18; O2SAT 96
[2023-12-17] MEDS: famotidine 20mg tablet PO SCH (20:21)
[2023-12-18 07:00] VITALS: BP 144/87; PULSE 98; RESP 20; TEMP 97.6; O2SAT 97
[2023-12-18 15:37] VITALS: PULSE 97; RESP 17; O2SAT 98
[2023-12-18 19:00] VITALS: RESP 18; O2SAT 95
[2023-12-18 19:52] VITALS: BP 131/78; PULSE 96; RESP 18; TEMP 97.9; O2SAT 97
[2023-12-19 07:00] VITALS: BP 146/83; PULSE 103; RESP 18; TEMP 98.8; O2SAT 98
[2023-12-19 19:00] VITALS: RESP 18; O2SAT 97
[2023-12-19 20:00] VITALS: BP 147/83; PULSE 91; RESP 18; TEMP 97.4; O2SAT 97
[2023-12-20 07:00] VITALS: BP 119/75; PULSE 112; RESP 16; RESP 18; TEMP 98.1; O2SAT 95; O2SAT 98
[2023-12-20 13:33] LABS: ALBUMIN 3.3 G/DL (3.4-5.0); ANION GAP 12 (8-16); BLOOD UREA NITROGEN 17 MG/DL (7-18); BUN/CREATININE RATIO 18.7 (10.0-20.0); CALCIUM 8.7 MG/DL (8.5-10.1); CHLORIDE 91 MMOL/L (99-107); CREATININE 0.91 MG/DL (0.60-1.10); GLUCOSE 106 MG/DL (70-104); POTASSIUM 4.9 MMOL/L (3.5-5.1); SODIUM 129 MMOL/L (135-145); TOTAL CARBON DIOXIDE 26.4 MMOL/L (24-32); eCRCL 72 ML/MIN; eGFR 83 ML/MIN
[2023-12-20 19:00] VITALS: RESP 18; O2SAT 96
[2023-12-20 20:24] VITALS: BP 134/66; PULSE 99; RESP 18; TEMP 98.2; O2SAT 96
[2023-12-21 07:56] LABS: ALBUMIN 3.4 G/DL (3.4-5.0); ANION GAP 9 (8-16); BLOOD UREA NITROGEN 16 MG/DL (7-18); CALCIUM 9.1 MG/DL (8.5-10.1); CHLORIDE 95 MMOL/L (99-107); CREATININE 0.84 MG/DL (0.60-1.10); GLUCOSE 82 MG/DL (70-104); POTASSIUM 5.6 MMOL/L (3.5-5.1); SODIUM 134 MMOL/L (135-145); TOTAL CARBON DIOXIDE 29.8 MMOL/L (24-32); eCRCL 78 ML/MIN; eGFR > 90 ML/MIN
[2023-12-21 08:00] VITALS: BP 144/82; PULSE 102; RESP 16; TEMP 97.7; O2SAT 97
[2023-12-21 16:50] VITALS: PULSE 75; RESP 18; O2SAT 96
[2023-12-21 19:00] VITALS: RESP 16
[2023-12-21 20:00] VITALS: RESP 16
[2023-12-22 07:57] VITALS: RESP 16
[2023-12-22 08:16] VITALS: BP 135/86; PULSE 105; RESP 18; TEMP 98.3; O2SAT 98
[2023-12-22 13:02] VITALS: PULSE 102; RESP 16; O2SAT 97
[2023-12-22 19:00] VITALS: BP 123/78; PULSE 108; RESP 16; TEMP 98.7; O2SAT 94
[2023-12-22] MEDS: cyclobenzaprine 10mg tablet PO PRN (21:28)
[2023-12-22 21:47] LABS: ALBUMIN 3.2 G/DL (3.4-5.0); ANION GAP 11 (8-16); BLOOD UREA NITROGEN 21 MG/DL (7-18); BUN/CREATININE RATIO 16.9 (10.0-20.0); CALCIUM 8.7 MG/DL (8.5-10.1); CHLORIDE 95 MMOL/L (99-107); CREATININE 1.24 MG/DL (0.60-1.10); GLUCOSE 115 MG/DL (70-104); POTASSIUM 4.8 MMOL/L (3.5-5.1); SODIUM 133 MMOL/L (135-145); TOTAL CARBON DIOXIDE 26.6 MMOL/L (24-32); eCRCL 53 ML/MIN; eGFR 58 ML/MIN
[2023-12-22] MEDS: insulin glargine (Lantus) pen - multi-dose SQ SCH (22:10)
[2023-12-23 07:26] VITALS: RESP 16
[2023-12-23 08:00] VITALS: BP 131/83; PULSE 99; RESP 12; TEMP 97.8; O2SAT 98
[2023-12-23 19:00] VITALS: BP 146/88; PULSE 101; RESP 15; TEMP 98.3; O2SAT 97
[2023-12-23 20:43] VITALS: PULSE 105; RESP 16; O2SAT 96
[2023-12-23] MEDS ORDERED: insulin glargine (Lantus) pen - multi-dose SQ SCH (21:00)
[2023-12-24 07:00] VITALS: BP 116/97; PULSE 107; RESP 12; TEMP 97.6; O2SAT 96
[2023-12-24 19:00] VITALS: RESP 17; O2SAT 99
[2023-12-24 20:00] VITALS: BP 146/85; PULSE 94; RESP 17; TEMP 98.4; O2SAT 99
[2023-12-24 20:42] VITALS: PULSE 108; RESP 16; O2SAT 92
[2023-12-25] VITALS (7 sets, daily range): BP systolic 144–160; BP diastolic 84–86; PULSE 79–108; RESP 16–18; TEMP 97.7–98.3; O2SAT 96–98
[2023-12-26 07:00] VITALS: RESP 16; O2SAT 95
[2023-12-26 08:00] VITALS: BP 148/91; PULSE 110; RESP 16; TEMP 98; O2SAT 95
[2023-12-26 19:00] VITALS: RESP 18; O2SAT 96
[2023-12-26 19:58] VITALS: PULSE 101; RESP 18; O2SAT 96
[2023-12-26 20:00] VITALS: BP 158/88; PULSE 106; RESP 18; TEMP 98; O2SAT 96
[2023-12-27 08:00] VITALS: BP 142/79; PULSE 105; RESP 20; TEMP 98.2; O2SAT 95
[2023-12-27 11:24] VITALS: PULSE 103; RESP 16; O2SAT 93
[2023-12-27] MEDS ORDERED: METF-438 PO (19:09)
[2023-12-27] MEDS ORDERED: LISI10TA27 PO (19:09)
[2023-12-27] MEDS ORDERED: DULA1.5P SQ (19:09)
[2023-12-27] MEDS ORDERED: ESCI-8 PO (19:09)
[2023-12-27] MEDS ORDERED: META-25 PO (19:09)
[2023-12-27] MEDS ORDERED: FAMO20TA8 PO (19:09)
[2023-12-27] MEDS ORDERED: ALBU18HF2 INH (19:09)
[2023-12-27] MEDS ORDERED: DIVA250T8 PO (19:09)
[2023-12-27] MEDS ORDERED: ROSU40TA PO (19:09)
[2023-12-27 20:00] VITALS: BP 141/83; PULSE 97; RESP 18; TEMP 97.9; O2SAT 97
[2023-12-27 21:21] VITALS: PULSE 100; RESP 16; O2SAT 98
[2023-12-28 07:30] VITALS: BP 139/71; PULSE 101; RESP 16; TEMP 98.9; O2SAT 97
== END 2023-12-28 14:46 | disposition home or self-care (01) | DRG 885 ==
LOC: ER 15:23 → ED HOLD 11-22 15:20 → ADULT MH 11-22 16:06
PROVIDERS: ADMIT Psychiatry & Neurology Psychiatry; ATTEND Psychiatry & Neurology Psychiatry
PROC: GZHZZZZ Group Psychotherapy (ICD-10-PCS; principal; 2023-11-25)
PROC: GZ51ZZZ Individual Psychotherapy, Behavioral (ICD-10-PCS; 2023-11-25)
DX: F33.3 Major depressive disorder, recurrent, severe with psychotic symptoms (principal); R45.851 Suicidal ideations; F41.1 Generalized anxiety disorder; E78.00 Pure hypercholesterolemia, unspecified; F43.10 Post-traumatic stress disorder, unspecified; G89.29 Other chronic pain; I10 Essential (primary) hypertension; K21.9 Gastro-esophageal reflux disease without esophagitis; J43.9 Emphysema, unspecified; F12.10 Cannabis abuse, uncomplicated; E11.42 Type 2 diabetes mellitus with diabetic polyneuropathy; I65.23 Occlusion and stenosis of bilateral carotid arteries; Z20.822 Contact with and (suspected) exposure to COVID-19; M54.2 Cervicalgia; Z91.148 Patient's other noncompliance with medication regimen for other reason; Z86.73 Personal history of transient ischemic attack (TIA), and cerebral infarction without residual deficits; Z88.6 Allergy status to analgesic agent; Z88.8 Allergy status to other drugs, medicaments and biological substances; Z79.84 Long term (current) use of oral hypoglycemic drugs; Z79.899 Other long term (current) drug therapy; Z91.199 Patient's noncompliance with other medical treatment and regimen due to unspecified reason
CPT/HCPCS: 36415; 70551; 71100; 72040; 73030; 80048; 80053; 80061; 80164; 80305; 80320; 81001; 82948; 83036; 84132; 84443; 85025; 86704; 86705; 87081; 87340; 87811; 92508; 92616; 93880; 94640; 94760; 99285; A6250; J1815; Q0177

== ENCOUNTER 2024-08-17 12:12 | Emergency (ER) | payer MEDICARE, MEDICAID ==
[~2024-08-17] VITALS: Ht 170.2 cm; Wt 95.0 kg
[~2024-08-17 12:12] MED LIST changes: -ACET-3447 PO; +ALBU18HF2 INH; -ALBU18HF2 PO; -CARV6.253 PO; -CLOP75TA34 PO; +DIVA250T8 PO; +ESCI-8 PO; +FAMO20TA8 PO; -HYDR-3686 PO; -INSU100I31 SQ; -IPRA3AMP9 NEB; -LOSA50TA64 PO; -METF-1203 PO; +METF-438 PO; -MULT-227 PO; +ROSU40TA PO; -SIMV-42 PO
[2024-08-17] MEDS ORDERED: LORazepam 2 mg/ml vial IM ONE (14:10)
[2024-08-17] MEDS: hydrALAZINE 20mg/ml inj. IV ONE (14:56)
[2024-08-17] MEDS: morphine 2 MG/ML inj. syringe IV ONE (14:57)
[2024-08-17] MEDS: cloNIDine 0.1 mg tablet PO ONE (14:57)
[2024-08-17] MEDS: LORazepam 2 mg/ml vial IV ONE (15:58)
[2024-08-17] MEDS: metoprolol tartrate 1mg/ml inj IV SCH (16:00)
[2024-08-17 16:09] LABS: BASOPHILS # (AUTO) 0.1 X10'3 (0-0.2); BASOPHILS % (AUTO) 0.8 % (0-1); EOSINOPHILS # (AUTO) 0.2 X10'3 (0-0.9); EOSINOPHILS % (AUTO) 2.4 % (0-6); HEMATOCRIT 34.9 % (42.0-52.0); HEMOGLOBIN 11.1 g/dl (14.0-17.9); LYMPHOCYTES # (AUTO) 1.6 X10'3 (1.1-4.8); LYMPHOCYTES % (AUTO) 22.6 % (21-51); MEAN CORPUSCULAR HGB CONC 31.7 g/dL (33.0-36.5); MONOCYTES # (AUTO) 0.7 X10'3 (0-0.9); MONOCYTES % (AUTO) 9.3 % (2-12); NEUTROPHILS # (AUTO) 4.6 X10'3 (1.8-7.7); NEUTROPHILS % (AUTO) 64.9 % (42-75); PLATELET COUNT 288 X10'3 (140-440); RED BLOOD COUNT 4.42 X10'6 (4.70-6.10); RED CELL DISTRIBUTION WIDTH 15.2 % (11.5-14.5)
[2024-08-17 16:21] LABS: ALANINE AMINOTRANSFERASE 33 U/L (12-78); ALBUMIN 3.8 G/DL (3.4-5.0); ALKALINE PHOSPHATASE 110 IU/L (46-116); ANION GAP 9 (8-16); ASPARTATE AMINO TRANSFERASE 25 U/L (10-37); BILIRUBIN,TOTAL 0.2 MG/DL (0.1-1.0); BLOOD UREA NITROGEN 12 MG/DL (7-18); BUN/CREATININE RATIO 14.8 (10.0-20.0); CALCIUM 8.8 MG/DL (8.5-10.1); CHLORIDE 98 MMOL/L (99-107); CREATININE 0.81 MG/DL (0.60-1.10); GLUCOSE 187 MG/DL (70-104); POTASSIUM 4.2 MMOL/L (3.5-5.1); SODIUM 134 MMOL/L (135-145); TOTAL PROTEIN 7.6 G/DL (6.4-8.2); eCRCL 79 ML/MIN; eGFR > 90 ML/MIN
[2024-08-17 17:35] LABS: BILIRUBIN,URINE NEGATIVE (Neg); CLARITY,URINE CLEAR (Clear); GLUCOSE, URINE 100 mg/dl (Neg); KETONES,URINE NEGATIVE (Neg); LEUKOCYTE ESTERASE ,URINE NEGATIVE (Neg); NITRITES, URINE NEGATIVE (Neg); OCCULT BLOOD,URINE NEGATIVE (Neg); PROTEIN,URINE NEGATIVE (Neg); UROBILINOGEN,URINE 0.2 E.U/dL (0.2-1.0)
[2024-08-17 17:38] LABS: COLOR,URINE Straw (Yellow); UA COLLECTION TYPE VOIDED
[2024-08-17] MEDS ORDERED: LISI20TA28 PO (18:33)
[2024-08-17 18:50] VITALS: BP_DIAS 74; RESP 18; O2SAT 96
[2024-08-17 18:51] VITALS: BP_SYST 137; PULSE 89
[2024-08-17] MEDS: metoprolol tartrate 50mg tablet PO ONE (18:51)
[2024-08-17 19:18] VITALS: TEMP 97.9
== END 2024-08-17 19:20 | disposition home or self-care (01) ==
LOC: ER 12:13
DX: R51.9 Headache, unspecified (principal); I16.0 Hypertensive urgency; E11.42 Type 2 diabetes mellitus with diabetic polyneuropathy; E78.00 Pure hypercholesterolemia, unspecified; F41.9 Anxiety disorder, unspecified; I10 Essential (primary) hypertension; E11.69 Type 2 diabetes mellitus with other specified complication; F31.9 Bipolar disorder, unspecified; J43.9 Emphysema, unspecified; K21.9 Gastro-esophageal reflux disease without esophagitis; Z88.8 Allergy status to other drugs, medicaments and biological substances; Z88.6 Allergy status to analgesic agent; Z79.899 Other long term (current) drug therapy; Z79.1 Long term (current) use of non-steroidal anti-inflammatories (NSAID); Z86.73 Personal history of transient ischemic attack (TIA), and cerebral infarction without residual deficits; Z90.89 Acquired absence of other organs
CPT/HCPCS: 36415; 70450; 80053; 81003; 83880; 84484; 85025; 93005; 96374; 96375; 99285; A6590; J0360; J2060; J2270; J3490